=== PATIENT | male | born 1985 | race Asian ===

== ENCOUNTER 2017-09-20 09:14 | Day surgery (SDC) | payer BC ==
[~2017-09-20 09:14] MED LIST: Buffered Lidocaine 0.9% SYRIN* 5 ML/SYR SYRINGE INTRADERM ONE
[2017-09-20] MEDS ORDERED: fentaNYL* 50 MCG/ML 2 ML VIAL (100 MCG VIAL) ONE (10:10)
[2017-09-20] MEDS ORDERED: Midazolam* 1 MG/ML 2 ML VIAL (2 MG) ONE (10:11)
[2017-09-20] MEDS ORDERED: Oxymetazoline 0.05% NASAL SPR* 15 ML BTL ONE (10:49)
[2017-09-20] MEDS ORDERED: Lidocaine 2% EPI 1:200000 MPF*10-20 ML VIAL ONE (10:49)
[2017-09-20] MEDS ORDERED: HYDROcodone/ACETAMIN 5-325 MG* 1 TAB PO PRN (11:12)
[2017-09-20] MEDS ORDERED: Naloxone* 0.4 MG/ML 1 ML VIAL IV PRN (11:12)
[2017-09-20] MEDS ORDERED: PROCHLORPERAZINE INJ 5 MG/ML 2 ML VIAL IV PRN (11:12)
[2017-09-20] MEDS ORDERED: DiMENhydriNATE IV* 50 MG/ML VIAL IV PUSH PRN (11:12)
[2017-09-20] MEDS ORDERED: fentaNYL* 50 MCG/ML 2 ML VIAL (100 MCG VIAL) IV PRN (11:12)
[2017-09-20] MEDS ORDERED: Nalbuphine* 10 MG/ML 1 ML VIAL IV PRN (11:12)
[2017-09-20] MEDS ORDERED: Acetaminophen TAB* 325 MG PO PRN (11:12)
[2017-09-20] MEDS ORDERED: Ondansetron INJ* 2 MG/ML VIAL IV PRN (11:12)
[2017-09-20] MEDS ORDERED: Bacitracin OINTMENT* 0.5% 0.5 oz TUBE ONE (11:21)
[2017-09-20] MEDS ORDERED: Ondansetron INJ* 2 MG/ML VIAL ONE (11:34)
[2017-09-20] MEDS ORDERED: Mivacurium Chloride* 20 MG/10 ML VIAL IV ONE (11:34)
[2017-09-20] MEDS ORDERED: Dexamethasone IV* 4 MG/ML 1 ML (4 MG) ONE (11:34)
[2017-09-20] MEDS ORDERED: Propofol* 10 MG/ML 20 ML BTL IV PUSH ONE (11:34)
[2017-09-20] MEDS ORDERED: Famotidine IV* 10 MG/ML 2 ML (20 mg) ONE (11:34)
[2017-09-20] MEDS ORDERED: Lidocaine 2% PF * 5 ML VIAL ONE (11:35)
[2017-09-20 12:57] VITALS: BP 106/70
--- NOTE | 2017-09-20 22:05 | OP ---
OPERATIVE REPORT: DATE OF OPERATION: 09/20/17 - SDS DATE OF : 83 SURGEON: Jim Ledezma MD ANESTHESIOLOGIST: Hubert Kenney MD ANESTHESIA: General. PRE-OP DIAGNOSES: 1. Deviated nasal septum. 2. Hypertrophied turbinates. 3. Intraoperative findings of nasal polyp. POST-OP DIAGNOSES: 1. Deviated nasal septum. 2. Hypertrophied turbinates. 3. Intraoperative findings of nasal polyp. OPERATIVE PROCEDURE: 1. Septoplasty. 2. Submucosal resection of inferior turbinates. 3. Biopsy of right nasal polyp. BRIEF HISTORY: This 32-year-old gentleman with significant history of nasal dyspnea identified to have a nasal deviation of the septum with hypertrophied turbinates. He has been previously recommended surgery. He has now time to think about this and agreed to proceed with septoplasty and submucosal resection of inferior turbinates. DESCRIPTION OF PROCEDURE: The patient was brought to the operating room. General anesthesia was given, the patient was intubated. Nose was decongested with Afrin placed pledgets. Subsequently, 2% lidocaine with epinephrine was infiltrated in the mucosa on both sides of the septum. A right hemitransfixion incision was created. Mucoperichondrial flap was elevated. Quadrangular cartilage was disarticulated along the vomer ethmoidal complex and along the maxillary crest, inferior portion of the crest was removed. A portion of the vomer ethmoidal complex was removed. A flat quadrangular cartilage freely swing. Multiple concave surface cuts were then made and the cartilage was straightened. The hemitransfixion incision was closed and multiple mattress sutures were used to keep the septum straight. Rogerio splints applied. During the procedure, it was noted that the patient had significant nasal polyps, there was a large polyp in the posterior area possibly an antrochoanal polyp. Cup forceps were used to remove and grasp and pull it out and sent out for biopsy specimens. Since we were not authorized to continue with endoscopic sinus surgery, I think the polypectomy will help him to breathe better, but I think eventually further investigation and management of the nasal polyps will be necessary. We then turned our attention to the inferior turbinates. Submucosal resection was carried out by infiltrating inferior turbinates on both sides with adrenaline, subsequently a small incision was made and submucosal elevation was carried out. Portions of the submucosal tissue was then removed. Cauterization was carried out of this region for hemostasis. The patient was then awakened, extubated and sent to recovery room in stable condition. Instrument and sponge counts correct. [id number]/[facility] #: [id number] [facility]
== END 2017-09-20 13:02 | disposition home or self-care (01) ==
LOC: OR 09:14
PROVIDERS: ATTEND Otolaryngology
DX: J34.2 Deviated nasal septum (principal); J34.3 Hypertrophy of nasal turbinates; J31.0 Chronic rhinitis; J33.0 Polyp of nasal cavity
CPT/HCPCS: 88304; 88312; A9270-GY; J1100; J2250; J2405; J2704; J3010